=== PATIENT | female | born 2000 | race Caucasian/White ===

== ENCOUNTER 2019-09-30 00:36 | Emergency (ER) | payer OTHER ==
[~2019-09-30] VITALS: Ht 170.2 cm; Wt 65.9 kg
[2019-09-30 00:41] VITALS: TEMP 98.1
[2019-09-30] MEDS ORDERED: PROAIR HFA0.09 MG/AC IH (00:45)
[2019-09-30] MEDS ORDERED: ZYRTEC 10MG10 MG PO (00:45)
[2019-09-30] MEDS ORDERED: YAZ 28 3 MG-0.01 TAB PO (00:45)
[2019-09-30] MEDS ORDERED: RT ADVAIR 228 DISKUS IH (00:45)
[2019-09-30 02:35] VITALS: BP 109/69
[2019-09-30] MEDS ORDERED: PREDNISONE20 MG PO (03:05)
[2019-09-30] MEDS ORDERED: TESSALON P100 MG/CAP PO (03:05)
[2019-09-30 03:07] VITALS: PULSE 97
== END 2019-09-30 03:15 | disposition home or self-care (01) ==
LOC: COL.ER 00:36
DX: J20.9 Acute bronchitis, unspecified (principal); J45.909 Unspecified asthma, uncomplicated; Z90.49 Acquired absence of other specified parts of digestive tract; Z79.51 Long term (current) use of inhaled steroids
CPT/HCPCS: J7512